=== PATIENT | male | born 1990 | race Two or more races ===

== ENCOUNTER 2018-07-11 14:05 | Emergency (ER) | payer OTHER ==
[2018-07-11] MEDS: ACETAMINOPHEN 325 MG TAB PO (15:00)
== END 2018-07-11 16:32 | disposition home or self-care (01) ==
LOC: M ED 14:05
DX: S01.511A Laceration without foreign body of lip, initial encounter (principal); S00.81XA Abrasion of other part of head, initial encounter; S00.83XA Contusion of other part of head, initial encounter; S00.33XA Contusion of nose, initial encounter; Y04.8XXA Assault by other bodily force, initial encounter; Y92.89 Other specified places as the place of occurrence of the external cause; F07.81 Postconcussional syndrome
CPT/HCPCS: 70450